=== PATIENT | female | born 1995 | race Caucasian/White ===

== ENCOUNTER 2018-12-17 15:27 | Outpatient (CLI) | payer MEDICAID ==
[2018-12-17 16:08] LABS: APPEARANCE,URINE SLIGHTLY-CLOUDY; BILIRUBIN,URINE NEGATIVE (NEGATIVE); COLOR,URINE YELLOW; GLUCOSE, URINE NEGATIVE (NEGATIVE); KETONES,URINE 20 mg/dL (NEGATIVE); LEUKOCYTE ESTERASE,URINE NEGATIVE (NEGATIVE); NITRITE,URINE NEGATIVE (NEGATIVE); PROTEIN,URINE NEGATIVE (NEGATIVE); URINE SPECIFIC GRAVITY 1.015; UROBILINOGEN,URINE NEGATIVE mg/dL (<2.0)
[2018-12-17 16:24] LABS: URINE AMPHETAMINES SCREEN NEGATIVE; URINE BARBITURATES SCREEN NEGATIVE; URINE BENZODIAZEPINES SCREEN NEGATIVE; URINE COCAINE SCREEN NEGATIVE; URINE MARIJUANA (THC) SCREEN NEGATIVE; URINE METHADONE SCREEN NEGATIVE; URINE PHENCYCLIDINE SCREEN NEGATIVE
[2018-12-17] MEDS ORDERED: HYDROXYZINE PAMOATE 50 MG CAPSULE PO ONE (19:01)
[2018-12-17] MEDS ORDERED: HYDROXYZINE PAMOATE 50 MG CAPSULE ONE (19:06)
== END 2018-12-17 19:48 | disposition home or self-care (01) ==
LOC: LC 15:27
PROVIDERS: ATTEND Obstetrics & Gynecology
PROC: 4A1HXCZ Monitoring of Products of Conception, Cardiac Rate, External Approach (ICD-10-PCS; principal; 2018-12-17)
DX: O47.1 False labor at or after 37 completed weeks of gestation (principal); Z3A.37 37 weeks gestation of pregnancy
CPT/HCPCS: 59025; 81001; 80307; 84112; J3490

== ENCOUNTER 2018-12-31 20:42 | Outpatient (CLI) | payer MEDICAID ==
[2018-12-31 21:18] LABS: APPEARANCE,URINE CLEAR; BILIRUBIN,URINE NEGATIVE (NEGATIVE); COLOR,URINE STRAW; GLUCOSE, URINE NEGATIVE (NEGATIVE); KETONES,URINE NEGATIVE (NEGATIVE); LEUKOCYTE ESTERASE,URINE NEGATIVE (NEGATIVE); NITRITE,URINE NEGATIVE (NEGATIVE); PROTEIN,URINE NEGATIVE (NEGATIVE); URINE SPECIFIC GRAVITY 1.005; UROBILINOGEN,URINE NEGATIVE mg/dL (<2.0)
[2018-12-31 21:38] LABS: URINE AMPHETAMINES SCREEN NEGATIVE; URINE BARBITURATES SCREEN NEGATIVE; URINE BENZODIAZEPINES SCREEN NEGATIVE; URINE COCAINE SCREEN NEGATIVE; URINE MARIJUANA (THC) SCREEN NEGATIVE; URINE METHADONE SCREEN NEGATIVE; URINE PHENCYCLIDINE SCREEN NEGATIVE
[2018-12-31] MEDS ORDERED: HYDROXYZINE PAMOATE 50 MG CAPSULE PO ONE (23:51)
[2018-12-31] MEDS ORDERED: HYDROXYZINE PAMOATE 50 MG CAPSULE ONE (23:58)
--- NOTE | 2019-01-01 00:08 | Non Stress Test Report ---
Non Stress Test Datetime Report Generated by CPN: 01/01/2019 00:08 DEMOGRAPHIC Test Number: 2 EGA NST: 39.5 EGA NST: 37.5 INDICATION Indication for Study: Ordered by Provider Indication for Study: Other Indication for Study (NST) Other: LC MONITORING Monitor Explained: Monitor Explained; Test Explained; Patient Verbalized Understanding Monitor Explained: Monitor Explained; Test Explained; Patient Verbalized Understanding Time on Monitor: 12/31/2018 23:43 Time on Monitor: 12/17/2018 17:35 Time off Monitor: 01/01/2019 00:03 Time off Monitor: 12/17/2018 17:56 NST Duration: 20 NST Duration: 21 NST INTERVENTIONS NST Interventions: PO Hydration NST Interventions: PO Hydration Physician Notified NST: Madsen Physician Notified NST: Dr Younger BABY A: [id number] BABY A Movement : Present Movement : Present Contraction Frequency : irregular Contraction Frequency : 2-4 FHR Baseline : 125 FHR Baseline : 125 Accelerations : 15X15 Accelerations : 15X15 Decelerations : None Decelerations : None Variability : Moderate 6-25bpm Variability : Moderate 6-25bpm NST Review: Meets Criteria for Reactive NST NST Review: Meets Criteria for Reactive NST NST Review and Verified By : Jeri Cueto RNC NST Review and Verified By : paramjit RNC-OB NST Results: Reactive NST Results: Reactive NST REPORT Report Trigger: Send Report
== END 2019-01-01 00:08 | disposition home or self-care (01) ==
LOC: LC 20:42
PROVIDERS: ATTEND Obstetrics & Gynecology Gynecology
PROC: 4A1HXCZ Monitoring of Products of Conception, Cardiac Rate, External Approach (ICD-10-PCS; principal; 2018-12-31)
DX: O47.1 False labor at or after 37 completed weeks of gestation (principal); Z3A.39 39 weeks gestation of pregnancy
CPT/HCPCS: 59025; 81005; 80307; J3490

== ENCOUNTER 2019-01-04 15:41 | Outpatient (CLI) | payer MEDICAID ==
--- NOTE | 2019-01-04 19:42 | Non Stress Test Report ---
Non Stress Test Datetime Report Generated by CPN: 01/04/2019 19:41 DEMOGRAPHIC EGA NST: 40.2 URINE RESULTS Urine Protein, NST: Negative Urine Ketones - NST: Negative Urine Glucose - NST: Negative Urine Blood - NST: Positive MONITORING Monitor Explained: Monitor Explained; Test Explained; Patient Verbalized Understanding Time on Monitor: 01/04/2019 18:04 Time off Monitor: 01/04/2019 18:45 NST Duration: 41 NST INTERVENTIONS NST Interventions: PO Hydration Physician Notified NST: Madsen BABY A: [id number] BABY A Movement : Present Contraction Frequency : 1-5 FHR Baseline : 125 Accelerations : 15X15 Decelerations : None Variability : Moderate 6-25bpm NST Review: Meets Criteria for Reactive NST NST Review and Verified By : SAMUEL MA Results: Reactive NST REPORT Report Trigger: Send Report
[2019-01-04 21:12] LABS: APPEARANCE,URINE SLIGHTLY-CLOUDY; BILIRUBIN,URINE NEGATIVE (NEGATIVE); COLOR,URINE STRAW; GLUCOSE, URINE NEGATIVE (NEGATIVE); KETONES,URINE NEGATIVE (NEGATIVE); LEUKOCYTE ESTERASE,URINE NEGATIVE (NEGATIVE); NITRITE,URINE NEGATIVE (NEGATIVE); PROTEIN,URINE NEGATIVE (NEGATIVE); UROBILINOGEN,URINE NEGATIVE mg/dL (<2.0)
[2019-01-04 21:26] LABS: URINE AMPHETAMINES SCREEN NEGATIVE; URINE BARBITURATES SCREEN NEGATIVE; URINE BENZODIAZEPINES SCREEN NEGATIVE; URINE COCAINE SCREEN NEGATIVE; URINE MARIJUANA (THC) SCREEN NEGATIVE; URINE METHADONE SCREEN NEGATIVE; URINE PHENCYCLIDINE SCREEN NEGATIVE
== END 2019-01-04 20:03 | disposition home or self-care (01) ==
LOC: LC 15:41
PROVIDERS: ATTEND Obstetrics & Gynecology Gynecology
PROC: 4A1HXCZ Monitoring of Products of Conception, Cardiac Rate, External Approach (ICD-10-PCS; principal; 2019-01-04)
DX: Z34.93 Encounter for supervision of normal pregnancy, unspecified, third trimester (principal)
CPT/HCPCS: 59025; 80307; 81005

== ENCOUNTER 2019-01-04 22:10 | Inpatient (IN) | payer MEDICAID ==
[2019-01-04] MEDS: RINGERS SOLUTION,LACTATED 1,000 ML IV PRN (22:40)
[2019-01-04] MEDS ORDERED: MISOPROSTOL 0.2 MG TABLET ONE (23:04)
[2019-01-04] MEDS ORDERED: OXYTOCIN 10 UNIT/ML VIAL ONE (23:04)
[2019-01-04] MEDS ORDERED: EPHEDRINE SULFATE INJ 50 MG/1 ML AMPULE ONE (23:05)
[2019-01-04] MEDS ORDERED: OXYTOCIN/NORMAL SALINE 20 UNIT/1,000 ML RTUINJ ONE (23:05)
[2019-01-04] MEDS ORDERED: BUPIVACAINE HCL 0.25 % INJ/PF (2.5 MG/1 ML) 30 ML VIAL ONE (23:05)
[2019-01-04] MEDS ORDERED: FENTANYL/BUPIVACAINE/NS/PF 300 MCG/150 ML RTUINJ EPI ONE (23:05)
[2019-01-04] MEDS ORDERED: LIDOCAINE 1% INJ-PF (10 MG/ML) 30 ML SDV ONE (23:05)
[2019-01-04 23:07] LABS: ABSOLUTE EOSINOPHILS # (AUTO) 0.1 10^3/uL (0.0-0.6); ABSOLUTE LYMPHOCYTES (AUTO) 2.5 10^3/uL (0.5-4.7); ABSOLUTE MONOCYTES (AUTO) 0.6 10^3/uL (0.1-1.4); ABSOLUTE NEUT (AUTO) 9.2 10^3/uL (1.7-8.2); BASOPHILS % (AUTO) 0.3 % (0-2); EOSINOPHILS % (AUTO) 0.7 % (0-6); HEMATOCRIT 36.7 % (36.0-47.0); HEMOGLOBIN 12.4 g/dL (12.0-15.5); LYMPHOCYTES % (AUTO) 20.5 % (13-45); MEAN CORPUSCULAR HGB CONC 33.9 g/dL (32.0-36.0); MEAN CORPUSCULAR VOLUME 89 fl (80-97); MONOCYTES % (AUTO) 4.6 % (3-13); PLATELET COUNT 222 10^3/uL (150-450); RED BLOOD COUNT 4.15 10^6/uL (3.72-5.28); RED CELL DISTRIBUTION WIDTH 13.7 % (11.5-14.0); SEGMENTED NEUTROPHILS % (AUTO) 73.9 % (42-78); TOTAL CELLS COUNTED % (AUTO) 100 %; WHITE BLOOD COUNT 12.4 10^3/uL (4.0-10.5)
--- NOTE | 2019-01-04 23:43 | Admission Physical ---
Datetime Report Generated by CPN: 01/04/2019 23:42 CURRENT ADMISSION Chief Complaint: Uterine Contractions Indication for Induction: Not Applicable Admit Impression : Term, Intrauterine Admit Plan: Initiate Labor Protocol ALLERGIES Medication Allergies: No Medication Allergies: No Known Allergies (01/04/2019) Latex: No Latex Allergies Food Allergies: none Environmental Allergies: none OBSTETRICAL HISTORY EDC: 01/02/2019 00:00 : 2 Para: 1 Term: 1 : 0 SAB: 0 IAB: 0 Ectopic: 0 Livin Cesareans: 0 VBACs: 0 Multiple Births: 0 Gestational Diabetes: No Rh Sensitization: No Incompetent Cervix: No KRYSTINA: No Infertility: No ART Treatment: No Uterine Anomaly: No IUGR: No Hx Previous C/S: No Macrosomia: No Hx Loss/Stillborn: No PIH: No Hx : No Placenta Previa/Abruption: No Depression/PP Depression: No PTL/PROM: No Post Hemorrhage: No Current Procedures: Ultrasound Obstetrical History Comments: 2016 baby girl 8#11 oz epidural, second degree lac G2- current , transferred from [place] [facility] Alcohol: No Marijuana : No Cocaine: No Other Illicit Drugs: No Cigarettes: Never Smoker. [id number] MEDICAL HISTORY Diabetes: No Blood Transfusion: No Pulmonary Disease (Asthma, TB): No Breast Disease: No Hypertension: No Senior Tax Analyst Surgery: Yes Heart Disease: No Hosp/Surgery: Yes Autoimmune Disorder: No Anesthetic Complications: No Kidney Disease: No Abnormal Pap Smear: No Neuro/Epilepsy: No Psychiatric Disorders: No Other Medical Diseases: No Hepatitis/Liver Disease: No Significant Family History: No Varicosities/Phlebitis: No Trauma/Violence : No Thyroid Dysfunction: No Medical History Comments: laproscopic ablation of adhesions r/t endometriosis - 2010, childbirth INFECTIOUS HISTORY Gonorrhea: No Genital Herpes: No Chlamydia: No Tuberculosis: No Syphilis: No Hepatitis: No HIV/AIDS Exposure: No Rash or Viral Illness: No HPV: No PHYSICAL EXAM General: Normal HEENT: Normal Neurologic: Normal Thyroid: Normal Heart: Normal Lungs: Normal Breast: Deferred Back: Normal Abdomen: Normal Genitourinary Exam: Normal Extremities: Normal DTRs: Normal Pelvic Type: Adequate FETUS A EGA: 40.2 PLANS FOR LABOR AND DELIVERY Labor and Delivery: Other, Specify Pain Management: Epidural Feeding Preference: Breast Benefit of Breast Feed Discussed: Yes Circumcision: Yes INFORMED CONSENT Signature: with User ID: [email or web address]
[2019-01-05] MEDS: RINGERS SOLUTION,LACTATED 1,000 ML IV PRN (00:03)
[2019-01-05] MEDS ORDERED: MAG HYDROX/AL HYDROX/SIMETH SUSP 30 ML UDCUP ONE (00:20)
[2019-01-05] MEDS ORDERED: PSEUDOEPHEDRINE HCL 30 MG TABLET PO PRN (06:17)
[2019-01-05] MEDS ORDERED: PROMETHAZINE HCL 25 MG TABLET PO PRN (06:17)
[2019-01-05] MEDS ORDERED: BENZOCAINE/MENTHOL AEROSOL SPRAY 56 ML TOP PRN (06:17)
[2019-01-05] MEDS ORDERED: OXYTOCIN/NORMAL SALINE 20,000 UNIT/1,000,000 ML RTUINJ IV PRN (06:17)
[2019-01-05] MEDS ORDERED: MEASLES,MUMPS&RUBELLA VACC/PF 0.5 ML VIAL SUBCUT PRN (06:17)
[2019-01-05] MEDS ORDERED: PROMETHAZINE HCL 25 MG SUPP.RECT PR PRN (06:17)
[2019-01-05] MEDS ORDERED: NA PHOS,M-B/NA PHOS,DI-BA (ADULT) 133 ML ENEMA PR PRN (06:17)
[2019-01-05] MEDS ORDERED: MAGNESIUM HYDROXIDE SUSP 30 ML UDCUP PO PRN (06:17)
[2019-01-05] MEDS ORDERED: DIBUCAINE 1% OINTMENT 56 GM TP PRN (06:17)
[2019-01-05] MEDS ORDERED: GLYCERIN/WITCH HAZEL LEAF 1 EACH MED..PAD TP PRN (06:17)
[2019-01-05] MEDS ORDERED: ZOLPIDEM TARTRATE 5 MG TABLET PO PRN (06:17)
[2019-01-05] MEDS ORDERED: ACETAMINOPHEN 650 MG SUPP.RECT PR PRN (06:17)
[2019-01-05] MEDS ORDERED: DIPHENHYDRAMINE HCL 25 MG CAPSULE PO PRN (06:17)
[2019-01-05] MEDS ORDERED: DIPH/PERTUSS(ACELL)/TETANUS VAC/PF 0.5 ML SYR (>=10YO) IM PRN (06:17)
[2019-01-05] MEDS ORDERED: PROMETHAZINE HCL INJ 25 MG/1 ML VIAL IV PRN (06:17)
[2019-01-05] MEDS ORDERED: DIPHENHYDRAMINE HCL 50 MG/ML VIAL ONE (07:21)
[2019-01-05] MEDS ORDERED: DIPHENHYDRAMINE HCL 25 MG CAPSULE ONE (07:25)
--- NOTE | 2019-01-05 07:46 | Warning Signs in Babies ---
VOD Warning Signs Datetime Report Generated by [facility]: 01/05/2019 07:45 VOD#[id number] -Warning Signs in Babies: Viewed with Parent(s)/Family (12/17/2018 15:29:Rohit Leiva RN)
--- NOTE | 2019-01-05 07:47 | Warning Signs in Babies ---
VOD Warning Signs Datetime Report Generated by [facility]: 01/05/2019 07:46 VOD#608 -Warning Signs in Babies: Viewed with Parent(s)/Family (01/05/2019 07:45:Rohit Leiva RN)
--- NOTE | 2019-01-05 09:45 | Delivery Summary ---
Del Sum A-C Datetime Report Generated by CPN: 01/05/2019 09:44 DELIVERY PERSONNEL DELIVERY PERSONNEL: [id number] Delivery Doctor:: Newton Madsen MD Labor and Delivery Nurse:: Noy León RNalgology teacher Nurse:: Denise King RN Nursery Nurse:: Georgina Kelly RN Brewery Technician/AUDITING CODER: Carmelaher Lopez, ST MATERNAL INFORMATION Delivery Anesthesia: Epidural Medications After Delivery: Pitocin Bolus-Please Comment; Pitocin Drip 20 Units/1000ml NSS Estimated Blood Loss (ml): 200 Maternal Complications: None LABOR SUMMARY EDC: 01/02/2019 00:00 No. Babies in Womb: 1 Attempted: No Labor Anesthesia: Epidural LABOR INFORMATION Reason for Induction: Not Applicable Onset of Labor: 01/04/2019 21:30 Complete Dilatation: 01/05/2019 05:46 Oxytocin: N/A Group B Beta Strep: NEGATIVE Antibiotics # of Doses: 0 Antibiotics Time of Last Dose: n/a Steroids Given: None Reason Steroids Not Administered: Not Applicable MEMBRANES Membranes Rupture Method: Spontaneous Rupture of Membranes: 01/04/2019 21:30 Length of Rupture (hr): 8.63 Amniotic Fluid Color: Clear Amniotic Fluid Amount: Moderate Amniotic Fluid Odor: Normal STAGES OF LABOR Stage 1 hr: 8 Stage 1 min: 16 Stage 2 hr: 0 Stage 2 min: 22 Stage 3 hr: 0 Stage 3 min: 4 Total Time in Labor hr: 8 Total Time in Labor min: 42 VAGINAL DELIVERY Episiotomy: None Laceration #1: Vaginal Laceration Extension #1: First Degree Laceration Repair: Yes Sponge Count Correct: N/A Sharps Count Correct: N/A CSECTION DELIVERY Primary Indication: N/A Secondary Indication: N/A CSection Incidence: N/A Labor: N/A Elective: N/A CSection Incision: N/A BABY A INFORMATION Delivery Date/Time: 01/05/2019 06:08 Method of Delivery: Vaginal Born in Route : No : N/A Forceps: N/A Vacuum Extraction: N/A Shoulder Dystocia : No PRESENTATION/POSITION BABY A Presentation: Cephalic Cephalic Presentation: Vertex Vertex Position: oa Breech Presentation: N/A PLACENTA INFORMATION BABY A Placenta Delivery Time : 01/05/2019 06:12 Placenta Method of Delivery: Spontaneous Placenta Status: Delivered SCORES BABY A Heart Rate 1 min: >100 bpm Resp Effort 1 min: Good Cry Reflex Irritability 1 min: Cough or Sneeze or Pulls Away Muscle Tone 1 min: Active Motion Color 1 min: Body Apex, Extremities Blue Resuscitation Effort 1 min: Tactile Stimulation SCORE 1 MIN: 9 Heart Rate 5 min: >100 bpm Resp Effort 5 min: Good Cry Reflex Irritability 5 min: Cough or Sneeze or Pulls Away Muscle Tone 5 min: Active Motion Color 5 min: Body Apex, Extremities Blue Resuscitation Effort 5 min: Tactile Stimulation SCORE 5 MIN: 9 INFANT INFORMATION BABY A Gestational Age at Delivery: 40.3 Gestational Status: Full Term- 39- 40.6 Weeks Infant Outcome : Liveborn Condition : Stable Sex: Male IDENTIFICATION BABY A Verification Date/Time: 01/05/2019 06:50 ID Band Number: [id number] Mother's Name Verified: Yes RN Verifying : RN Romelia Additional Verifying Personnel: SAMUEL King WEIGHT/LENGTH BABY A Birthweight (gm): 3844 Infant Weight (lb): 8 Infant Weight (oz): 8 Length (in): 20.00 Length (cm): 50.80 CORD INFORMATION BABY A No. Cord Vessels: 3 Nuchal Cord : N/A Cord Blood Taken: Yes-For Storage (Mom's Blood type +) Infant Suction: Mouth ASSESSMENT BABY A Infant Complications: None Physical Findings at Delivery: Within Normal Limits Infant Respirations: Appears Normal Skin to Skin: Yes Skin to Skin Time (min): 45 Car Shakeout Operator/ALS Called : No Transferred To: Remains with Mother BABY B INFORMATION : N/A SIGNATURES Signature: with User ID: [email or web address]
[2019-01-05] MEDS: FAMOTIDINE 20 MG TABLET PO SCH ×2 (11:15→23:27)
[2019-01-05] MEDS: SENNOSIDES/DOCUSATE 8.6-50 MG 1 EACH TABLET PO SCH (11:15)
[2019-01-05] MEDS: PRENATAL VITAMIN W DHA CAPSULE PO SCH (11:15)
[2019-01-05] MEDS: DOCUSATE SODIUM 100 MG CAPSULE PO SCH ×2 (11:15→23:59)
[2019-01-05] MEDS: FERROUS SULFATE 325 MG TABLET PO SCH ×2 (11:15→23:59)
[2019-01-05] MEDS: ACETAMINOPHEN WITH CODEINE #3 TABLET PO PRN ×2 (11:21→20:18)
[2019-01-05] MEDS: IBUPROFEN 800 MG TABLET PO SCH ×2 (14:51→23:27)
[2019-01-06] MEDS: IBUPROFEN 800 MG TABLET PO SCH ×2 (05:29→14:07)
[2019-01-06 07:14] LABS: HEMATOCRIT 34.2 % (36.0-47.0); HEMOGLOBIN 11.7 g/dL (12.0-15.5); MEAN CORPUSCULAR HEMOGLOBIN 30.7 pg (27.0-33.4); MEAN CORPUSCULAR HGB CONC 34.3 g/dL (32.0-36.0); MEAN CORPUSCULAR VOLUME 89 fl (80-97); PLATELET COUNT 190 10^3/uL (150-450); RED BLOOD COUNT 3.83 10^6/uL (3.72-5.28); RED CELL DISTRIBUTION WIDTH 14.2 % (11.5-14.0); WHITE BLOOD COUNT 13.1 10^3/uL (4.0-10.5)
[2019-01-06 08:20] VITALS: BP 123/69
--- NOTE | 2019-01-06 10:34 | PDOC DISCHARGE SUMMARY ---
Final Diagnosis Discharge Date: 01/06/19 - Final Diagnosis (1) Vaginal delivery Is this a current diagnosis for this admission?: Yes Discharge Data - Discharge Medication Home Medications: Ferrous Sulfate [Iron] 325 mg PO DAILY 12/17/18 Pnv No.95/Ferrous Fum/Folic AC [ Vitamin Tablet] 1 tab PO DAILY 12/17/18 Reason(s) for Admission: Onset of Labor Procedures: NST Intrapartum Procedure(s): Spontaneous Vaginal Delivery Complication(s): Laceration-Vaginal Laceration-Degree: 1st - Diagnosis Test Laboratory: Temp Pulse Resp BP Pulse Ox 98.1 F 67 16 123/69 95 01/06/19 08:16 01/06/19 08:16 01/06/19 08:16 01/06/19 08:16 01/06/19 08:16 01/04/19 01/06/19 22:52 06:33 RBC 4.15 3.83 Hgb 12.4 11.7 L Hct 36.7 34.2 L - Discharge information/Instructions Discharge Activity: Balance Activity w/Rest, Pelvic Rest Discharge Diet: Regular Disposition: HOME, SELF-CARE Follow up with: [facility] in: 4, Weeks
--- NOTE | 2019-01-06 10:34 | PDOC PROGRESS REPORT ---
Subjective-OB Progress Note for:: 01/06/19 Subjective: Pt doing well, no concerns. She reports light bleeding, reg diet and voiding without difficulty. Physical Exam (OB) Vital Signs: Temp Pulse Resp BP Pulse Ox 98.1 F 67 16 123/69 95 01/06/19 08:16 01/06/19 08:16 01/06/19 08:16 01/06/19 08:16 01/06/19 08:16 Intake & Output 01/05/19 01/06/19 01/07/19 06:59 06:59 06:59 Intake Total 173 1000 Balance 173 1000 Weight 79.2 kg - PIH/Pre-Eclampsia DTR's: 1 + Clonus: Negative Headache: Absent Epigastric Pain: No Visual Changes: No - Lochia Lochia Amount: Small 10-25 ml Lochia Color: Rubra/Red - Abdomen Description: Soft, Round Hernia Present: No Fundal Description: Firm, Midline Fundal Height: u/u - u/2 Objective-Diagnostic Laboratory: 01/06/19 06:33 01/06/19 06:33 WBC 13.1 H RBC 3.83 Hgb 11.7 L Hct 34.2 L MCV 89 MCH 30.7 MCHC 34.3 RDW 14.2 H Plt Count 190 Assessment and Plan(PN) - Assessment and Plan (1) Vaginal delivery Is this a current diagnosis for this admission?: Yes - Time Spent with Patient Time with patient: Less than 15 minutes Medications reviewed and adjusted accordingly: Yes - Disposition Anticipated Discharge: Home Within: within 24 hours
[2019-01-06] MEDS: FERROUS SULFATE 325 MG TABLET PO SCH (10:47)
[2019-01-06] MEDS: DOCUSATE SODIUM 100 MG CAPSULE PO SCH (10:47)
[2019-01-06] MEDS: FAMOTIDINE 20 MG TABLET PO SCH (10:47)
[2019-01-06] MEDS: SENNOSIDES/DOCUSATE 8.6-50 MG 1 EACH TABLET PO SCH (10:47)
[2019-01-06] MEDS: PRENATAL VITAMIN W DHA CAPSULE PO SCH (10:47)
[2019-01-06] MEDS: ACETAMINOPHEN WITH CODEINE #3 TABLET PO PRN (12:50)
== END 2019-01-06 15:33 | disposition home or self-care (01) | DRG 807 ==
LOC: LC 22:10 → LR 22:31 → 2S 01-05 09:10
PROVIDERS: ADMIT Obstetrics & Gynecology Gynecology; ATTEND Obstetrics & Gynecology Gynecology
PROC: 10E0XZZ Delivery of Products of Conception, External Approach (ICD-10-PCS; principal; 2019-01-05)
PROC: 0HQ9XZZ Repair Perineum Skin, External Approach (ICD-10-PCS; 2019-01-05)
DX: O70.0 First degree perineal laceration during delivery (principal); Z37.0 Single live birth; Z3A.40 40 weeks gestation of pregnancy
CPT/HCPCS: 36415; 85025; 85027; 86592; 86850; 86900; 86901; J1200; J2590; J3010; J3490